=== PATIENT | female | born 1940 | race Caucasian/White ===

== ENCOUNTER 2023-01-03 08:47 | Emergency (ER) | payer MEDICARE ==
[2023-01-03] MEDS ORDERED: Orphenadrine Citrate 60 MG/2 ML VIAL ONE (09:18)
== END 2023-01-03 10:20 | disposition home or self-care (01) ==
LOC: MADERS 08:47
DX: M25.551 Pain in right hip (principal); G89.29 Other chronic pain; E03.9 Hypothyroidism, unspecified; E05.90 Thyrotoxicosis, unspecified without thyrotoxic crisis or storm; Z79.899 Other long term (current) drug therapy
CPT/HCPCS: 96372; J2360